=== PATIENT | male | born 1975 | race Two or more races ===

== ENCOUNTER → 2023-01-24 | Emergency (ER) | payer OTHER ==
[~2023-01-24] VITALS: Ht 167.6 cm; Wt 77.1 kg
[~2023-01-24] MED LIST: PEPCID AC10 MG PO; PRAVASTATIN SOD10 MG PO; PRILOSEC OTC20 MG PO
== END | disposition left against medical advice (07) ==
LOC: ER 21:54
DX: Z53.21 Procedure and treatment not carried out due to patient leaving prior to being seen by health care provider (principal)

== ENCOUNTER 2025-07-24 19:22 | Emergency (ER) | payer OTHER ==
[~2025-07-24] VITALS: Ht 167.6 cm; Wt 77.1 kg
[2025-07-24] MEDS ORDERED: FAMOTIDINE/PF 20 MG/2 ML VIAL IV ONE (20:30)
[2025-07-24] MEDS ORDERED: FAMOTIDINE/PF 20 MG/2 ML VIAL ONE (20:42)
[2025-07-24] MEDS ORDERED: ONDANSETRON HCL 2 MG/ML VIAL ONE (20:42)
[2025-07-24] MEDS ORDERED: ONDANSETRON HCL 2 MG/ML VIAL IV ONE (20:45)
[2025-07-24] MEDS ORDERED: 0.9 % SODIUM CHLORIDE 500 ML IV ONE (20:45)
[2025-07-24 22:03] LABS: BASO % 1.3 % (0.1-1.2); EOS # 0.21 (0.04-0.54); EOS % 2.6 % (0.7-7.0); LYMPH # 2.47 (1.18-3.74); LYMPH % 30.3 % (19.3-53.1); MEAN PLATELET VOLUME 9.30 fl (9.4-12.4); MONO # 0.66 (0.24-0.82); MONO % 8.1 % (4.7-12.5); NEUT # 4.69 (1.56-6.13); NEUT % 57.6 % (34.0-71.1); RED CELL DISTRIBUTION WIDTH 12.4 % (11.6-14.4)
[2025-07-24 22:04] LABS: URINE APPEARANCE Clear; URINE BILIRRUBIN Negative (NEGATIVE); URINE BLOOD Negative; URINE COLOR Yellow; URINE GLUCOSE Negative (NEGATIVE); URINE KETONE Negative (NEGATIVE); URINE LEUKOCYTE Negative; URINE NITRATE Negative; URINE PROTEIN Negative (NEGATIVE); URINE UROBILINOGEN 0.2 E.U./dl
[2025-07-24 22:07] LABS: URINE BACTERIA 4.7 uL (0.0-1933); URINE WBC 3.2 uL (0.0-23.2)
[2025-07-24 22:13] LABS: URINE CAST 0.00 uL (0.0-1.40); URINE EPITHELIAL CELLS 0.7 uL (0.0-38.8); URINE RBC 0.1 uL (0.0-20.8)
[2025-07-24 22:44] LABS: INR 1.03
[2025-07-24 22:50] LABS: ALT/SGPT 44.0 U/L (12-78); AST/SGOT 36.0 U/L (15-37); BILIRUBIN TOTAL 0.42 mg/dL (0.3-1.2); BUN CREA RATIO 15.0 (7.0-25.0); CREATININE SERUM 1.0 mg/dL (0.70-1.30); GFR 80.09; GLOBULINA 3.8 G/DL (2.4-3.5); GLUCOSE FASTING 87.0 mg/dL (65-100); OSMOLALITY SERUM 281.0 MOSM/KG (275-295)
[2025-07-24] MEDS ORDERED: LEVSIN0.125 MG PO (23:27)
== END 2025-07-25 00:33 | disposition home or self-care (01) ==
LOC: ER 19:22
PROVIDERS: General Practice
DX: R10.11 Right upper quadrant pain (principal); Z91.013 Allergy to seafood; E78.49 Other hyperlipidemia; K29.70 Gastritis, unspecified, without bleeding